=== PATIENT | male | born 1960 | race Caucasian/White ===

== ENCOUNTER 2021-03-21 11:41 | Outpatient (CLI) | payer SELFPAY ==
[2021-03-21 15:39] LABS: BUN - BLOOD UREA NITROGEN 18 mg/dL (6-20); CALCIUM 9.4 mg/dL (8.5-10.3); CARBON DIOXIDE - CO2 25 mmol/L (21-32); CHLORIDE 106 mmol/L (101-111); CHOL/HDL RATIO 7.5 (<5.0); CHOLESTEROL 234 mg/dL; CREATININE 0.9 mg/dL (0.6-1.2); GFR - MDRD 86 (>89); GLUCOSE 108 mg/dL (70-100); HDL CHOLESTEROL 31 mg/dL; LDL CHOLESTEROL,CALCULATED 141 mg/dL; LDL/HDL RATIO 4.5 (<3.6); POTASSIUM 4.4 mmol/L (3.5-5.0); SODIUM 140 mmol/L (135-145); TRIGLYCERIDES 309 mg/dL; VLDL CHOLESTEROL 62 mg/dL
[2021-03-21 20:07] LABS: ESTIMATED AVERAGE GLUCOSE 120 mg/dL (70-100); HEMOGLOBIN A1c% 5.8 % (4.27-6.07)
== END 2021-03-21 11:42 | disposition home or self-care (01) ==
LOC: LAB.S 11:41
PROVIDERS: ATTEND Physician Assistant
DX: I10 Essential (primary) hypertension (principal); R73.01 Impaired fasting glucose; E78.1 Pure hyperglyceridemia; E66.9 Obesity, unspecified
CPT/HCPCS: 36415; 80048; 80061; 83036; 83721; 84153

== ENCOUNTER 2021-04-06 15:45 | Outpatient (CLI) | payer SELFPAY | END 2021-04-06 15:46 | disposition critical access hospital (66) | LOC: EMS 15:45 | DX: R29.810 Facial weakness (principal); R47.81 Slurred speech | CPT/HCPCS: A0425; A0429 ==

== ENCOUNTER 2021-04-06 16:04 | Observation (INO) | payer SELFPAY ==
--- NOTE | 2021-04-06 16:11 | ED Physician Documentation ---
History of Present Illness - Stated complaint Stated Complaint: CODE STROKE - Additonal information Additional information: 61-year-old male presents the emergency department for evaluation of abrupt onset of aphasia and right-sided facial droop. Symptoms began at 1525. He was sitting outside with a friend at a picnic table when the friend noted that he began to have a sudden facial droop aphasia slurring words and difficulty with word finding. Blood sugar 98 on scene Patient is able to report to the provider that at the time that he had slurred speech and facial droop he was having some vision changes (flashers in his eyes) that have since resolved. He does have a history of migraines but did not have a headache at this time. Reports a family history of aneurysms in his sister and father. pmh: hyperlipidemia, htn. No hx of anticoagulation meds: lisinopril, amlodipine, niacin SOC: + tobacco; rare etoh Review of Systems Constitutional: reports: Reviewed and negative Eyes: reports: Reviewed and negative Ears: reports: Reviewed and negative Nose: reports: Reviewed and negative Throat: reports: Reviewed and negative Cardiac: reports: Reviewed and negative Respiratory: reports: Reviewed and negative GI: reports: Reviewed and negative : reports: Reviewed and negative Skin: reports: Reviewed and negative Musculoskeletal: reports: Reviewed and negative Neurologic: reports: Focal weakness. denies: Syncope, Confused, Altered mental status, Headache PD PAST MEDICAL HISTORY - Present Medications Home Medications: Ambulatory Orders Medication Instructions Recorded Confirmed Lisinopril/Hydrochlorothiazide 1 tablet PO DAILY 04/06/21 04/06/21 [Zestoretic 10-12.5 mg Tablet] Meloxicam [Mobic] 15 mg PO DAILY PRN 04/06/21 04/06/21 Multivitamin 1 tablet PO DAILY 04/06/21 04/06/21 Niacin (Inositol Niacinate) 500 mg PO BID 04/06/21 04/06/21 [Niacin 500 mg Capsule] amLODIPine [Norvasc] 5 mg PO DAILY 04/06/21 04/06/21 - Allergies Allergies/Adverse Reactions: Allergies Allergy/AdvReac Type Severity Reaction Status Date / Time No Known Drug Allergies Allergy Verified 04/06/21 16:25 PD ED PE EXPANDED - General General: Alert, No acute distress, Other (obese) - Neck Neck: Supple w/out meningeal sx. No: Adenopathy - Cardiac Cardiac: Regular Rate, Radial strong equal, Pedal strong equal, Cap refill < 2 sec - Respiratory Respiratory: Clear to ausultation keyana. No: Distress, Labored - Abdomen Abdomen: Normal Bowel sounds. No: Tender to palpation - Derm Derm: Normal color, Warm and dry - Extremities Extremities: Normal. No: Deformity, Tenderness - Neuro Neuro: Alert and Oriented X 3. No: CN deficit (right sided facial driip, slurred speech, difficulty with word finding) - GCS Eye Opening: Spontaneous Motor: Obeys Commands Verbal: Oriented Total: 15 Results - Vitals Vitals: Vital Signs - 24 hr 04/06/21 04/06/21 04/06/21 16:04 17:00 17:15 Temperature 37.0 C Heart Rate 87 75 73 Respiratory 22 16 16 Rate Blood Pressure 147/74 H 143/86 H 139/98 H O2 Saturation 95 96 96 Oxygen O2 Source Room air - EKG (time done) 1623 Rate: Rate (enter#) (82) Rhythm: NSR [place]: Normal Intervals: Normal GA. No: Prolonged QT QRS: LVH Ischemia: Q waves (anterior leads; ? LVH) Compare to prior EKG: Old EKG unavailable Computer interpretation: Agree with computer - Labs Labs: Laboratory Tests 04/06/21 04/06/21 04/06/21 16:17 16:20 16:20 WBC 6.3 RBC 5.84 Hgb 17.4 Hct 52.7 H MCV 90.2 MCH 29.8 MCHC 33.0 RDW 13.4 Plt Count 201 MPV 11.1 Neut # (Auto) 3.9 Lymph # (Auto) 1.4 L [place] # (Auto) 0.8 Eos # (Auto) 0.1 Baso # (Auto) 0.1 Absolute Nucleated RBC 0.00 Nucleated RBC % 0.0 PT 11.7 INR 1.0 Sodium Potassium Chloride Carbon Dioxide Anion Gap BUN Creatinine Estimated GFR (MDRD) Glucose Calcium Total Bilirubin AST ALT Alkaline Phosphatase Troponin I High Sens Total Protein Albumin Globulin Albumin/Globulin Ratio Lipase TSH Nasal Adenovirus (PCR) NOT DETECTED Nasal B. parapertussis DNA (PCR) NOT DETECTED Nasal Coronavir 229E PCR NOT DETECTED Nasal Coronavir HKU1 PCR NOT DETECTED Nasal Coronavir NL63 PCR NOT DETECTED Nasal Coronavir OC43 PCR NOT DETECTED Nasal Enterovir/Rhinovir PCR NOT DETECTED Nasal Influenza B PCR NOT DETECTED Nasal Influenza A PCR NOT DETECTED Nasal Parainfluen 1 PCR NOT DETECTED Nasal Parainfluen 2 PCR NOT DETECTED Nasal Parainfluen 3 PCR NOT DETECTED Nasal Parainfluen 4 PCR NOT DETECTED Nasal RSV (PCR) NOT DETECTED Nasal B.pertussis DNA PCR NOT DETECTED Nasal C.pneumoniae (PCR) NOT DETECTED Daniel Human Metapneumo PCR NOT DETECTED Nasal M.pneumoniae (PCR) NOT DETECTED Nasal SARS-CoV-2 (PCR) NOT DETECTED 04/06/21 04/06/21 04/06/21 16:20 16:20 16:20 WBC RBC Hgb Hct MCV MCH MCHC RDW Plt Count MPV Neut # (Auto) Lymph # (Auto) [place] # (Auto) Eos # (Auto) Baso # (Auto) Absolute Nucleated RBC Nucleated RBC % PT INR Sodium 136 Potassium 3.9 Chloride 102 Carbon Dioxide 26 Anion Gap 8.0 BUN 24 H Creatinine 1.0 Estimated GFR (MDRD) 76 L Glucose 89 Calcium 9.2 Total Bilirubin 0.9 AST 27 ALT 37 Alkaline Phosphatase 39 L Troponin I High Sens 5.0 Total Protein 7.2 Albumin 4.5 Globulin 2.7 Albumin/Globulin Ratio 1.7 Lipase 27 TSH 2.19 Nasal Adenovirus (PCR) Nasal B. parapertussis DNA (PCR) Nasal Coronavir 229E PCR Nasal Coronavir HKU1 PCR Nasal Coronavir NL63 PCR Nasal Coronavir OC43 PCR Nasal Enterovir/Rhinovir PCR Nasal Influenza B PCR Nasal Influenza A PCR Nasal Parainfluen 1 PCR Nasal Parainfluen 2 PCR Nasal Parainfluen 3 PCR Nasal Parainfluen 4 PCR Nasal RSV (PCR) Nasal B.pertussis DNA PCR Nasal C.pneumoniae (PCR) Daniel Human Metapneumo PCR Nasal M.pneumoniae (PCR) Nasal SARS-CoV-2 (PCR) - Rads (name of study) CT head, CT angio head/neck Radiology: Final report received (No intracranial hemorrhage. No aneurysm or significant stenosis seen. Unremarkable CTA head and neck) PD MEDICAL DECISION MAKING - ED course Complexity details: reviewed results, re-evaluated patient, d/w patient, d/w family, d/w home planning consultant salesperson (Dr. Moses tele stroke) ED course: 61-year-old gentleman presents to the emergency department for evaluation of acute onset right-sided facial droop, aphasia and difficulty with word finding. Symptoms began at 1525. At the time that he presented to the emergency de partment much of the facial droop aphasia and word finding difficulty had begun to resolve. At 1630 they were 100% resolved. His worst NIH was 3. Screening EKG chest x-ray and labs do not reveal any worrisome abnormalities. Telestroke consultation was done with Dr. Moses. She evaluated the patient as well as the imaging findings. Given that this gentleman does have a history of migraines she suspects that this was an atypical migraine. She would not recommend TPA at this time. She does recommend 325 mg of aspirin. Admission to the hospital for an MRI in the a.m. If MRI is unrevealing no findings of stroke, patient is okay to be discharged on 81 mg of aspirin for approximately 2 weeks and follow-up with a neurologist as an outpatient. I discussed the plan and findings with the patient and his brother at the bedside and they are in agreement. I discussed this admission with Dr. Arellano to who agrees to admit the patient. Departure - Departure Disposition: ED Place in Observation Clinical Impression: Stroke-like symptoms NIHSS - Time Time: 16:10 - Level of Consciousness Level of consciousness: (0) Alert, Keenly responsive - Gaze Best Gaze: (0) Normal - Visual Visual: (0) No loss - Facial Palsy Facial Palsy: (1) Minor paralysis - Motor Arms (both separate) Motor Arm (right): (0) No drift Motor Arm (left): (0) No drift - Motor Legs (both separate) Motor Leg (right): (0) No drift Motor Leg (left): (0) No drift - Limb Ataxia Limb Ataxia: (0) Absent - Sensory Sensory: (0) Normal - Best Language Best Language: (1) [id number] - Dysarthria Dysarthria: (0) Normal - Extinction and Inattention (formally neg Extinction and inattention: (0) No abnormality (3)
[2021-04-06] MEDS ORDERED: IOVERSOL 320 100 ML VIAL IVP ONE ×2 (16:25→16:35)
[2021-04-06 16:26] LABS: BASOPHILS # (AUTO) 0.1 10^3/uL (0.0-0.1); EOSINOPHILS # (AUTO) 0.1 10^3/uL (0.0-0.7); EOSINOPHILS % (AUTO) 1.3 %; HCT - HEMATOCRIT 52.7 % (42.0-52.0); HGB - HEMOGLOBIN 17.4 g/dL (14.0-18.0); LYMPHOCYTES # (AUTO) 1.4 10^3/uL (1.5-3.5); LYMPHOCYTES % (AUTO) 21.9 %; MEAN CORPUSCULAR HEMOGLOBIN 29.8 pg (27.0-31.0); MEAN CORPUSCULAR VOLUME 90.2 fL (80.0-94.0); MEAN PLATELET VOLUME 11.1 fL (7.4-11.4); MONOCYTES # (AUTO) 0.8 10^3/uL (0.0-1.0); MONOCYTES % (AUTO) 12.9 %; NEUTROPHILS # (AUTO) 3.9 10^3/uL (1.5-6.6); NEUTROPHILS % (AUTO) 62.4 %; PLT - PLATELET COUNT 201 10^3/uL (130-450); RED BLOOD COUNT 5.84 10^6/uL (4.70-6.10); RED CELL DISTRIBUTION WIDTH 13.4 % (12.0-15.0); WHITE BLOOD COUNT 6.3 x10^3/uL (4.8-10.8)
[2021-04-06 16:31] LABS: PT - PROTHROMBIN TIME 11.7 secs (9.9-12.6)
--- NOTE | 2021-04-06 16:34 | CT Report ---
PROCEDURE: Head W/O Stroke Protocol INDICATIONS: Slurred speech TECHNIQUE: Noncontrast 4.5 mm thick angled axial sections acquired from the foramen magnum to the vertex, with c oronal reformats. For radiation dose reduction, the following was used: automated exposure control, adjustment of mA and/or kV according to patient size. COMPARISON: FINDINGS: Image quality: Excellent. CSF spaces: Basal cisterns are patent. No extra-axial fluid collections. Ventricles are normal in size and shape. Brain: No midline shift. No intracranial masses or hemorrhage. Aguiar-white matter interface is norm al. Skull and face: Calvarium and visualized facial bones are intact, without suspicious lesions. Sinuses: Visualized sinuses and mastoids are clear. IMPRESSION: Unremarkable CT brain. No intracranial hemorrhage or mass effect. This study fulfills neurological imaging criteria for inclusion or exclusion of acute stroke therapie s based on available published neurological imaging guidelines. Critical results were discussed with Dr. Sanabria at 3:32 PM [place] time 04/06/2021 Reviewed by: Jude Merchant MD on 04/06/2021 3:33 PM AKMARIBEL Approved by: Jude Merchant MD on 04/06/2021 3:33 PM AKDT Station ID: [id number]
[2021-04-06 16:39] LABS: ALBUMIN 4.5 g/dL (3.2-5.5); ALBUMIN/GLOBULIN RATIO 1.7 (1.0-2.2); BILIRUBIN,TOTAL 0.9 mg/dL (0.2-1.0); CALCIUM 9.2 mg/dL (8.5-10.3); POTASSIUM 3.9 mmol/L (3.5-5.0); TOTAL PROTEIN 7.2 g/dL (6.7-8.2)
--- NOTE | 2021-04-06 16:40 | XRAY Report ---
PROCEDURE: Chest 1 View X-Ray INDICATIONS: Chest Pain TECHNIQUE: One view of the chest was acquired. COMPARISON: None FINDINGS: Surgical changes and devices: None. Lungs and pleura: No pleural effusions or pneumothorax. Lungs are clear. Mediastinum: Mediastinal contours appear normal. Heart size is enlarged. Bones and chest wall: No suspicious bony lesions. Overlying soft tissues appear unremarkable. IMPRESSION: No acute pulmonary process. Reviewed by: Zee Amaro MD on 04/06/2021 4:38 PM PDT Approved by: Zee Amaro MD on 04/06/2021 4:38 PM PDT Station ID: [id number]
--- NOTE | 2021-04-06 16:41 | CT Report ---
PROCEDURE: ANGIO HEAD W/WO INDICATIONS: stroke sx CONTRAST: IV CONTRAST: Optiray 320 ml: 80 PO CONTRAST: *NO PO CONTRAST TECHNIQUE: Precontrast 4.5 mm thick angled axial sections acquired from the foramen magnum to the vertex. Afte r the administration of intravenous contrast, 1 mm thick sections acquired through the [place] of [place] is. Postcontrast 4.5 mm thick sections then re-acquired from the foramen magnum to the vertex. For radiation dose reduction, the following was used: automated exposure control, adjustment of mA and/o r kV according to patient size. COMPARISON: None FINDINGS: Image quality: Excellent. Anterior circulation: Intracranial internal carotid arteries are normal in size and flow. The flow within the paired anterior cerebral arteries is normal and symmetric. The flow within the middle cer ebral arteries is normal and symmetric. The anterior communicating artery is seen. No aneurysms are seen. Posterior circulation: Visualized portions of the vertebral arteries demonstrate normal caliber, and join to form a normal appearing basilar artery. Flow within the posterior cerebral arteries is norm al and symmetric. No aneurysms are seen. CSF spaces: Ventricles are normal in size and shape. Basal cisterns are patent. No extra-axial flu id collections. Brain: No midline shift. No intracranial bleeds or masses. Aguiar-white matter interface appears int act. Skull and face: Calvarium and facial bones appear intact, without suspicious lesions. Sinuses: Visualized sinuses and mastoids are clear. IMPRESSION: Unremarkable CT angiogram of the brain. No large vessel occlusion, aneurysm or vascular malformation Reviewed by: Jude Merchant MD on 04/06/2021 3:39 PM PIYUSH Approved by: Jude Merchant MD on 04/06/2021 3:39 PM AKDT Station ID: [id number]
--- NOTE | 2021-04-06 16:47 | CT Report ---
PROCEDURE: ANGIO NECK W INDICATIONS: stroke sx CONTRAST: IV CONTRAST: Optiray 320 ml: 80 PO CONTRAST: *NO PO CONTRAST TECHNIQUE: After the administration of intravenous contrast, 1.5 mm axial sections acquired from the aortic arch to the [place] of [place]. Coronal 3-D maximum intensity projection (MIP) and/or volume rendering ref ormats were then performed. For radiation dose reduction, the following was used: automated exposur e control, adjustment of mA and/or kV according to patient size. COMPARISON: CTA head 04/06/2021 FINDINGS: Image quality: Excellent. Carotid system: The great vessels demonstrate a conventional anatomy as they arise from the aortic a rch. The origins of the common carotid arteries appear patent. The common carotid arteries demonstr ate normal calibers and courses. The bifurcation regions appear normal bilaterally. The internal ca rotid arteries demonstrate normal caliber and course. Posterior circulation: The origins of the vertebral arteries appear patent. The more superior porti ons of the vertebral arteries demonstrate normal course and caliber. They join to form a normal appe aring basilar artery. Soft tissues: Visualized neck soft tissues demonstrate no suspicious abnormalities. The thyroid is normal in size and there are no incidental findings. Bones: No suspicious bony lesions. Visualized cervical spine appears normally aligned. IMPRESSION: There are no areas of hemodynamically significant stenosis, vascular occlusion or aneurysmal dilation within the neck vasculature. The estimate of stenosis included in the report of the imaging study was calculated using the NASCET method Reviewed by: Zee Amaro MD on 04/06/2021 4:46 PM PDT Approved by: Zee Amaro MD on 04/06/2021 4:46 PM PDT Station ID: [id number]
[2021-04-06] MEDS ORDERED: ASPIRIN CHEW 81 MG TABLET PO STA (17:00)
[2021-04-06] MEDS ORDERED: ONDANSETRON 4 MG/2 ML VIAL IVP PRN (17:17)
[2021-04-06] MEDS ORDERED: ACETAMINOPHEN 325 MG TABLET PO PRN (17:17)
[2021-04-06] MEDS ORDERED: SODIUM CHLORIDE FLUSH 0.9% 10 ML SYRINGE IVP PRN (17:17)
--- NOTE | 2021-04-06 17:25 | HISTORY & PHYSICAL EXAMINATION ---
Chief Complaint - Chief Complaint Chief Complaint: slurred speech, word-finding difficulties History of Present Illness - Admitted From Admitted From:: [facility] ED - History Obtained From Records Reviewed: yes History obtained from: patient - History of Present Illness HPI Comment/Other: Patient is a 61-year-old male with medical history significant for migraines, hypertension, hyperlipidemia who presented to the ED with word finding diffic ulty, slurred speech and right facial droop. His symptoms started suddenly around 3:20 PM while he was getting something to eat. He also reported experiencing some haziness in his vision which he typically experiences with migraines. However he reports that he has never previously experienced the word finding difficulty and slurred speech or facial droop. He denied any lower extremity weakness or numbness. By the time he presented to the ED his symptoms had resolved. Work-up in the ED included a CT and CTA head and neck which were unremarkable. He was presented for further work-up for TIA symptoms. His case was discussed with stroke neurology who felt this might have been related to his migraines. At bedside the patient was resting comfortably visiting with his brother. He denied chest pain, dyspnea, abdominal pain, nausea, vomiting, fever or chills. Neuro exams were negative. History - Past Medical History Cardiovascular: reports: Hypertension, High cholesterol Neuro: reports: Migraines GI: reports: Other (right inguinal and umbilical hernia) Other Past Medical History: chews tobacco - Past Surgical History General: reports: Other Ortho: reports: Arthroscopic surgery - Family & Social History Family History Comment/Other: His father in his 40s from a brain aneurysm. His father also had a valvular replacement. His sister also has brain aneurysm. Social History Notes: He lives at home with his girlfriend and his brother occasionally lives with them. He smokes about 4 cigarettes daily and has been smoking for 3 years. He chews tobacco. He rarely consumes alcohol and does not use any recreational substances. - POLST Patient has POLST: No POLST Status: Full Code Meds/Allgy - Home Medications Home Medications: Ambulatory Orders Medication Instructions Recorded Confirmed Lisinopril/Hydrochlorothiazide 1 tablet PO DAILY 04/06/21 04/06/21 [Zestoretic 10-12.5 mg Tablet] Meloxicam [Mobic] 15 mg PO DAILY PRN 04/06/21 04/06/21 Multivitamin 1 tablet PO DAILY 04/06/21 04/06/21 Niacin (Inositol Niacinate) 500 mg PO BID 04/06/21 04/06/21 [Niacin 500 mg Capsule] amLODIPine [Norvasc] 5 mg PO DAILY 04/06/21 04/06/21 Aspirin EC [Ecotrin] 81 mg PO DAILY tablet 04/07/21 Atorvastatin [Lipitor] 40 mg PO QPM 30 Days #30 tablet 04/07/21 Fenofibrate,Micronized 67 mg PO DAILY 30 Days #30 cap 04/07/21 [Fenofibrate] - Allergies Allergies/Adverse Reactions: Allergies Allergy/AdvReac Type Severity Reaction Status Date / Time No Known Drug Allergies Allergy Verified 04/06/21 16:25 Review of Systems - Constitutional Constitutional: denies: Fatigue, Fever, Chills, Weakness - Eyes Eyes: reports: Blurred vision. denies: Pain - Ears, Nose & Throat Ears, Nose & Throat: denies: Ear pain, Hearing loss, Vertigo, Sore throat - Cardiovascular Cariovascular: denies: Irregular heart rate, Palpitations, Chest pain, Edema, Lightheadedness, Syncope - Respiratory Respiratory: denies: Cough, Sputum production, Wheezing, SOB at rest, SOB with exertion - Gastrointestinal Gastrointestinal: denies: Abdominal pain, Abdominal distention, Constipation, Diarrhea, Nausea, Vomiting, Reflux/heartburn - Genitourinary Genitourinary: denies: Dysuria, Frequency, Urgency, Hematuria, Incontinence - Musculoskeletal Musculoskeletal: denies: Muscle pain, Back pain, Muscle aches, Stiffness - Integumentary Integumentary: denies: Rash, Pruritis, Lesions, Dryness - Neurological Neurological: reports: Slurred speech, Other (word-finding difficulty). denies: Headache, Dizziness - Psychiatric Psychiatric: denies: Depression, Anxiety - Endocrine Endocrine: denies: Polyuria, Polydypsia - Hematologic/Lymphatic Hematologic/Lymphatic: denies: Anemia, Bruising, Petechiae Prior Level of Functionality: He is independent of activities of daily living. He is a builder. Exam - Vital Signs Vital Signs: Vital Signs x48h Temp Pulse Resp BP Pulse Ox 04/06/21 17:15 73 16 139/98 H 96 04/06/21 17:00 75 16 143/86 H 96 04/06/21 16:04 37.0 C 87 22 147/74 H 95 - Physical Exam General Appearance: positive: No acute distress, Alert Eyes Bilateral: positive: PERRL, EOMI ENT: positive: No signs of dehydration Neck: positive: No JVD, Trachea midline Respiratory: positive: Chest non-tender, No respiratory distress, Breath sounds nml. negative: Wheezes, Rales, Rhonchi Cardiovascular: positive: Regular rate & rhythm, No murmur Abdomen: positive: Non-tender, Nml bowel sounds, No distention. negative: Guarding, Rebound Back: positive: Nml inspection Skin: positive: Color nml, No rash, Warm, Dry Extremities: positive: Non-tender, Full ROM, No pedal edema Neurologic/Psychiatric: positive: Oriented x3, Motor nml, Mood/affect nml. negative: Weakness, Facial droop, Slurred/abnml speech Conclusion/Plan - Problem List (1) TIA (transient ischemic attack) Conclusion/Plan: CT and CT Stephanie of the head and neck were negative. Neurochecks every shift. MRI of the brain without contrast ordered for the morning. 2D echocardiogram ordered for the morning. We will check hemoglobin A1c. Patient was given a full dose aspirin. We will continue baby aspirin daily. (2) Hypertension Conclusion/Plan: On amlodipine, lisinopril and hydrochlorothiazide. Will resume in the a.m. (3) Hyperlipidemia Conclusion/Plan: Patient had lipid panel done on 03/08/21. Triglycerides were 309, total cholesterol 234, LDL 141 and HDL 31. Patient was started on niacin 500 mg twice daily by his primary care physician. Atorvastatin 40 mg p.o. every afternoon initiated today. Patient advised that he would need to continue atorvastatin. He was also advised on diet and exercise. (4) Migraines Conclusion/Plan: Patient does not take any medications. - Lab Results Fish Bones: 04/07/21 05:02 04/07/21 05:02 Core Measures - Anticipated LOS I expect patient to be DC'd or transferred within 96 hours.: Yes - DVT/VTE - Prophylaxis VTE/DVT Device ordered at admit?: Yes - AMI - Statin at Admit Aspirin Prescribed on Admit: Yes
[2021-04-06 17:30] LABS: B. PARAPERTUSSIS- RESP PCR PAN NOT DETECTED; B. PERTUSSIS- RESP PCR PANEL NOT DETECTED; C. PNEUMONIAE- RESP PCR PANEL NOT DETECTED; CORONAVIRUS 229E-RESP PCR NOT DETECTED; CORONAVIRUS HKU1-RESP PCR NOT DETECTED; CORONAVIRUS NL63-RESP PCR NOT DETECTED; CORONAVIRUS OC43-RESP PCR NOT DETECTED; HUMAN METAPNEUMOVIRUS NOT DETECTED; INFLUENZA A- RESP PCR PANEL NOT DETECTED; INFLUENZA B - RESP PCR PANEL NOT DETECTED; M. PNEUMONIAE- RESP PCR PANEL NOT DETECTED; PARAINFLUENZA VIRUS 1 NOT DETECTED; PARAINFLUENZA VIRUS 2 NOT DETECTED; PARAINFLUENZA VIRUS 3 NOT DETECTED; PARAINFLUENZA VIRUS 4 NOT DETECTED; RHINOVIRUS/ENTEROVIRUS NOT DETECTED; RSV- RESP PCR PANEL NOT DETECTED; SARS-CoV-2 -RESP PCR PANEL NOT DETECTED
--- NOTE | 2021-04-06 17:41 | PHARMACY PROGRESS NOTE ---
- Best Possible Medication History Admit Date and Time: 04/06/21 1717 Processed by: Nursing Medication History completed: Yes As the person ultimately responsible for medication therapy, providers are able to order a medication from an existing home medication list in [facility] via the "Reconcile Routine" prior to Confirmation of that medication by support architect. Such practice is discouraged except when the physician, in their clinical judgment, deems that a medical need exists for a medication without regard to previous use.
[2021-04-06] MEDS ORDERED: ATORVASTATIN 40 MG TABLET PO SCH (21:00)
[2021-04-06] MEDS ORDERED: NIACIN 500 MG PO SCH (21:00)
[2021-04-07] MEDS: SODIUM CHLORIDE FLUSH 0.9% 10 ML SYRINGE IVP SCH ×2 (01:24→09:44)
[2021-04-07 05:19] LABS: BASOPHILS # (AUTO) 0.1 10^3/uL (0.0-0.1); BASOPHILS % (AUTO) 0.8 %; EOSINOPHILS # (AUTO) 0.1 10^3/uL (0.0-0.7); EOSINOPHILS % (AUTO) 2.2 %; HCT - HEMATOCRIT 51.5 % (42.0-52.0); LYMPHOCYTES # (AUTO) 1.8 10^3/uL (1.5-3.5); LYMPHOCYTES % (AUTO) 28.2 %; MEAN CORPUSCULAR HEMOGLOBIN 29.8 pg (27.0-31.0); MEAN CORPUSCULAR VOLUME 90.4 fL (80.0-94.0); MEAN PLATELET VOLUME 11.6 fL (7.4-11.4); MONOCYTES # (AUTO) 0.7 10^3/uL (0.0-1.0); MONOCYTES % (AUTO) 10.4 %; NEUTROPHILS # (AUTO) 3.7 10^3/uL (1.5-6.6); NEUTROPHILS % (AUTO) 57.9 %; PLT - PLATELET COUNT 208 10^3/uL (130-450); RED CELL DISTRIBUTION WIDTH 13.6 % (12.0-15.0); WHITE BLOOD COUNT 6.4 x10^3/uL (4.8-10.8)
[2021-04-07 05:25] LABS: POTASSIUM 4.1 mmol/L (3.5-5.0)
[2021-04-07 08:31] LABS: ESTIMATED AVERAGE GLUCOSE 117 mg/dL (70-100); HEMOGLOBIN A1c% 5.7 % (4.27-6.07)
[2021-04-07] MEDS ORDERED: lisinopriL 5 MG TABLET PO SCH (09:00)
[2021-04-07] MEDS ORDERED: amLODIPine 5 MG TABLET PO SCH (09:00)
[2021-04-07] MEDS ORDERED: hydroCHLOROthiazide 12.5 MG CAPSULE PO SCH (09:00)
[2021-04-07] MEDS ORDERED: ASPIRIN EC 81 MG TABLET PO SCH (09:00)
--- NOTE | 2021-04-07 13:53 | Discharge Plan ---
Discharge Plan Problem Reviewed?: Yes Disposition: Home, Self Care Condition: Stable Prescriptions: Fenofibrate,Micronized [Fenofibrate] 67 mg PO DAILY 30 Days #30 cap Atorvastatin [Lipitor] 40 mg PO QPM 30 Days #30 tablet Diet: Cardiac Activity Restrictions: Activity as Tolerated Shower Restrictions: No Driving Restrictions: No Health Concerns: You presented to the emergency department yesterday with slurred speech, word finding difficulty and right facial droop. Your symptoms had resolved by the time you arrived the emergency room. Work-up included an MRI of your brain which showed that you had a subacute left parietal cortical lacunar infarct. This finding has been discussed with you in the presence of your girlfriend and your son. Recommendations are for medical optimization. The goals would be for blood pressure control, improvement of your lipids (triglycerides and cholesterol). You have been advised to watch your diet. This was involved eating more fruits and vegetables and minimizing your salt intake, fast food and eating out. You are advised to exercise more. 30 minutes of rigorous exercise 3 times a week will be good. You have been advised to stop smoking. You have been advised to minimize stress in your life since this tends to contribute to elevated blood pressures. You are to continue taking your lisinopril, HCTZ and amlodipine. You may get a blood pressure monitor if affordable and monitor your blood pressure regularly at the same time of the day. Ideally we would like to have your blood pressure less than 140/80. You may discuss your blood pressure recordings with your primary care physician for the possibility of adjusting your medications if your blood pressure is not well controlled. Systolic blood pressure of 200 would warrant immediate attention. New medications ordered: Atorvastatin 40 mg p.o. q. p.m. Fenofibrate 67 mg p.o. daily. Aspirin 81 mg p.o. daily You are to follow-up with your primary care physician in 7 to 10 days from now. This is a posthospitalization follow-up. It is expected that your physician will assume management of your home medications and any new medications ordered in the hospital. It is expected that your primary care physician would also repeat your labs to include repeat lipid panel in at least 3 months from now. Due to lack of any neurologic deficit you may resume work and activities as tolerated. You expressed understanding of the plan discussed above and are in agreement. You are being discharged in stable condition. Plan of Treatment: You presented to the emergency department yesterday with slurred speech, word finding difficulty and right facial droop. Your symptoms had resolved by the time you arrived the emergency room. Work-up included an MRI of your brain which showed that you had a subacute left parietal cortical lacunar infarct. This finding has been discussed with you in the presence of your girlfriend and your son. Recommendations are for medical optimization. The goals would be for blood pressure control, improvement of your lipids (triglycerides and cholesterol). You have been advised to watch your diet. This was involved eating more fruits and vegetables and minimizing your salt intake, fast food and eating out. You are advised to exercise more. 30 minutes of rigorous exercise 3 times a week will be good. You have been advised to stop smoking. You have been advised to minimize stress in your life since this tends to contribute to elevated blood pressures. You are to continue taking your lisinopril, HCTZ and amlodipine. You may get a blood pressure monitor if affordable and monitor your blood pressure regularly at the same time of the day. Ideally we would like to have your blood pressure less than 140/80. You may discuss your blood pressure recordings with your primary care physician for the possibility of adjusting your medications if your blood pressure is not well controlled. Systolic blood pressure of 200 would warrant immediate attention. New medications ordered: Atorvastatin 40 mg p.o. q. p.m. Fenofibrate 67 mg p.o. daily. Aspirin 81 mg p.o. daily You are to follow-up with your primary care physician in 7 to 10 days from now. This is a posthospitalization follow-up. It is expected that your physician will assume management of your home medicat ions and any new medications ordered in the hospital. It is expected that your primary care physician would also repeat your labs to include repeat lipid panel in at least 3 months from now. Due to lack of any neurologic deficit you may resume work and activities as tolerated. You expressed understanding of the plan discussed above and are in agreement. You are being discharged in stable condition. Care Goals: You presented to the emergency department yesterday with slurred speech, word finding difficulty and right facial droop. Your symptoms had resolved by the time you arrived the emergency room. Work-up included an MRI of your brain which showed that you had a subacute left parietal cortical lacunar infarct. This finding has been discussed with you in the presence of your girlfriend and your son. Recommendations are for medical optimization. The goals would be for blood pressure control, improvement of your lipids (triglycerides and cholesterol). You have been advised to watch your diet. This was involved eating more fruits and vegetables and minimizing your salt intake, fast food and eating out. You are advised to exercise more. 30 minutes of rigorous exercise 3 times a week will be good. You have been advised to stop smoking. You have been advised to minimize stress in your life since this tends to contribute to elevated blood pressures. You are to continue taking your lisinopril, HCTZ and amlodipine. You may get a blood pressure monitor if affordable and monitor your blood pressure regularly at the same time of the day. Ideally we would like to have your blood pressure less than 140/80. You may discuss your blood pressure recordings with your primary care physician for the possibility of adjusting your medications if your blood pressure is not well controlled. Systolic blood pressure of 200 would warrant immediate attention. New medications ordered: Atorvastatin 40 mg p.o. q. p.m. Fenofibrate 67 mg p.o. daily. Aspirin 81 mg p.o. daily You are to follow-up with your primary care physician in 7 to 10 days from now. This is a posthospitalization follow-up. It is expected that your physician will assume management of your home medications and any new medications ordered in the hospital. It is expected that your primary care physician would also repeat your labs to include repeat lipid panel in at least 3 months from now. Due to lack of any neurologic deficit you may resume work and activities as tolerated. You expressed understanding of the plan discussed above and are in agreement. You are being discharged in stable condition. Assessment: You presented to the emergency department yesterday with slurred speech, word finding difficulty and right facial droop. Your symptoms had resolved by the time you arrived the emergency room. Work-up included an MRI of your brain which showed that you had a subacute left parietal cortical lacunar infarct. This finding has been discussed with you in the presence of your girlfriend and your son. Recommendations are for medical optimization. The goals would be for blood pressure control, improvement of your lipids (triglycerides and cholesterol). You have been advised to watch your diet. This was involved eating more fruits and vegetables and minimizing your salt intake, fast food and eating out. You are advised to exercise more. 30 minutes of rigorous exercise 3 times a week will be good. You have been advised to stop smoking. You have been advised to minimize stress in your life since this tends to contribute to elevated blood pressures. You are to continue taking your lisinopril, HCTZ and amlodipine. You may get a blood pressure monitor if affordable and monitor your blood pressure regularly at the same time of the day. Ideally we would like to have your blood pressure less than 140/80. You may discuss your blood pressure recordings with your primary care physician for the possibility of adjusting your medications if your blood pressure is not well controlled. Systolic blood pressure of 200 would warrant immediate attention. New medications ordered: Atorvastatin 40 mg p.o. q. p.m. Fenofibrate 67 mg p.o. daily. Aspirin 81 mg p.o. daily You are to follow-up with your primary care physician in 7 to 10 days from now. This is a posthospitalization follow-up. It is expected that your physician will assume management of your home medications and any new medications ordered in the hospital. It is expected that your primary care physician would also repeat your labs to include repeat lipid panel in at least 3 months from now. Due to lack of any neurologic deficit you may resume work and activities as tolerated. You expressed understanding of the plan discussed above and are in agreement. You are being discharged in stable condition. No Smoking: If you smoke, Please STOP! Call for help. Follow-up with: DANAY QURESHI PA-C [Primary Care Provider] -
--- NOTE | 2021-04-07 13:53 | DISCHARGE SUMMARY ---
"Discharge Summary Admit Date: 04/06/20 Discharge Date: 04/07/21 Discharging Provider: Moises Arellano Primary Care Provider: Suresh Jc Code Status: Attempt Resuscitation Condition at Discharge: Stable Discharge Disposition: 01 Home, Self Care - DIAGNOSES Admission Diagnoses: TIA Hypertension Hyperlipidemia Migraine Discharge Diagnoses with Status of Each Condition: CVA: Subacute left parietal cortical lacunar infarcts. No residual deficits. Lipitor, fenofibrate, Baby aspirin ordered Hypertension: Chronic. Stable. Continue home medication Hyperlipidemia: Lipitor and Fenofibrate ordered Migraines: Stable. Not in Status/ Flare. Not on any medication - HPI History of Present Illness: Patient is a 61-year-old male with medical history significant for migraines, hypertension, hyperlipidemia who presented to the ED with word finding difficulty, slurred speech and right facial droop. His symptoms started suddenly around 3:20 PM while he was getting something to eat. He also reported experiencing some haziness in his vision which he typically experiences with migraines. However he reports that he has never previously experienced the word finding difficulty and slurred speech or facial droop. He denied any lower extremity weakness or numbness. By the time he presented to the ED his symptoms had resolved. Work-up in the ED included a CT and CTA head and neck which were unremarkable. He was presented for further work-up for TIA symptoms. His case was discussed with stroke neurology who felt this might have been related to his migraines. At bedside the patient was resting comfortably visiting with his brother. He denied chest pain, dyspnea, abdominal pain, nausea, vomiting, fever or chills. Neuro exams were negative. - CONSULTS | PROCEDURES Procedures: MRI of the brain done on 04/07/2021 showed subacute left parietal cortical lacunar infarct noted in the postcentral gyrus laterally. Chronic ischemic changes noted in the left frontal white matter. 2D echocardiogram showed done on 04/07/21 showed Left ventricular size is normal. There was mild concentric left ventricular hypertrophy. Overall left ventricular systolic function is normal with an ejection fraction of 60 to 65%. Normal diastolic G. No regional wall motion abnormality seen. Right ventricle is normal in size and function. Left atrial volume index is normal. Right atrium mild to moderate right atrial enlargement. The aortic valve was trileaflet. There is mild to moderate aortic valve sclerosis. There was no evidence of aortic stenosis or aortic regurgitation. No mitral stenosis or mitral regurgitation. There is no pericardial effusion noted. The interatrial septum was normal. There was insufficient TR jet to allow for accurate assessment of the RVSP. - HOSPITAL COURSE Hospital Course: Patient overnight stay was unremarkable. He was monitored on telemetry. With neuro checks He had a lipid panel on 03/21/21 which showed Triglycerides of 309, Cholesterol 234, LDL 141 and HDL 31 When the MRI of the brain came back indicating a subacute left parietal lacunar infarct Session with the patient while his son and his girlfriend were at bedside. I emphasized the importance of eating healthier. Eating more fruits and vegetables, less salt, less fast food or eating out. Emphasized the importance of exercise. He was advised to stop smoking. He was prescribed lipitor 40 mg p.o. every afternoon, fenofibrate and a baby aspirin daily. He is to continue taking his lisinopril, HCTZ and amlodipine. He was also educated on the importance of blood pressure control. Ideally his blood pressure should be less than 140/80. He was advised to get a blood pressure monitor if affordable. He could keep blood pressure readings daily for a 7-day period, Checking his blood pressure at the same time of the day. Preferably in the morning. He can then discuss these recordings with his primary care physician for further adjustment of his blood pressure medication. The patient was discharged home in stable condition. Through out his hospital stay and at the time of his discharge he had no neurological deficits. He was advised to follow-up with his primary care physician in 7 to 10 days. It is expected that his primary care physician will resume management of his medications. The patient expressed understanding and was agreeable with the above discussed plans. - ALLERGIES Allergies/Adverse Reactions: Allergies Allergy/AdvReac Type Severity Reaction Status Date / Time No Known Drug Allergies Allergy Verified 04/06/21 16:25 - MEDICATIONS Home Medications: Ambulatory Orders Medication Instructions Recorded Confirmed Lisinopril/Hydrochlorothiazide 1 tablet PO DAILY 04/06/21 04/06/21 [Zestoretic 10-12.5 mg Tablet] Meloxicam [Mobic] 15 mg PO DAILY PRN 04/06/21 04/06/21 Multivitamin 1 tablet PO DAILY 04/06/21 04/06/21 Niacin (Inositol Niacinate) 500 mg PO BID 04/06/21 04/06/21 [Niacin 500 mg Capsule] amLODIPine [Norvasc] 5 mg PO DAILY 04/06/21 04/06/21 Aspirin EC [Ecotrin] 81 mg PO DAILY tablet 04/07/21 Atorvastatin [Lipitor] 40 mg PO QPM 30 Days #30 tablet 04/07/21 Fenofibrate,Micronized 67 mg PO DAILY 30 Days #30 cap 04/07/21 [Fenofibrate] - PHYSICAL EXAM AT DISCHARGE General Appearance: positive: No acute distress, Alert Eyes Bilateral: positive: PERRL, EOMI ENT: positive: No signs of dehydration Neck: positive: No JVD, Trachea midline Respiratory: positive: Chest non-tender, No respiratory distress, Breath sounds nml. negative: Wheezes, Rales, Rhonchi Cardiovascular: positive: Regular rate & rhythm, No murmur Abdomen: positive: Non-tender, No organomegaly, Nml bowel sounds, No distention. negative: Guarding, Rebound Back: positive: Nml inspection. negative: CVA tenderness (R) Skin: positive: Color nml, No rash, Warm, Dry Extremities: positive: Non-tender, Full ROM, Nml appearance, No pedal edema Neurologic/Psychiatric: positive: Oriented x3, Motor nml, Sensation nml, Mood/affect nml. negative: Facial droop, Slurred/abnml speech, Depressed m ood/affect - LABS Result Diagrams: 04/07/21 05:02 04/07/21 05:02 - TIME SPENT Time Spent in Discharge (Minutes): 25"
--- NOTE | 2021-04-07 14:26 | MRI Report ---
PROCEDURE: Brain W/O INDICATIONS: slurred speech TECHNIQUE: Noncontrast axial T1 spin echo, axial T2 fast spin echo, sagittal and axial FLAIR, coronal T2 fast sp in echo, axial gradient echo, axial diffusion and ADC through the brain. COMPARISON: None. FINDINGS: Image quality: Excellent. CSF Spaces: Basal cisterns are patent. No extra-axial fluid collections. Ventricles are normal in size and shape. Brain: There is punctate restricted diffusion noted in the left parietal postcentral gyrus laterally , consistent with subacute infarct noted. Minimal associated edema without sulcal effacement or midli ne shift. Additionally, small white matter chronic ischemic change noted in the left frontal lobe. No intracran ial masses or hemorrhage. Aguiar/white matter interface is normal. Brainstem appears normal. Normal intravascular flow voids are present. Skull and face: Calvarium has normal marrow signal. Orbits appear normal. Sinuses: Sinuses and mastoids are clear. IMPRESSION: 1. Subacute left parietal cortical lacunar infarcts noted in the postcentral gyrus laterally 2. Chronic ischemic change noted in the left frontal white matter. Reviewed by: Jude Merchant MD on 04/07/2021 1:25 PM [facility] Approved by: Jude Merchant MD on 04/07/2021 1:25 PM [facility] Station ID: [id number]
[2021-04-07 17:13] VITALS: BP 137/86
== END 2021-04-07 16:55 | disposition home or self-care (01) ==
LOC: EDUNIT# → SUPCPDRO 16:04 → ED 16:04 → MS2 17:17
PROVIDERS: ADMIT Internal Medicine; ATTEND Internal Medicine
DX: I63.81 Other cerebral infarction due to occlusion or stenosis of small artery (principal); R47.01 Aphasia; R29.810 Facial weakness; I10 Essential (primary) hypertension; F17.210 Nicotine dependence, cigarettes, uncomplicated; R29.703 NIHSS score 3; F17.220 Nicotine dependence, chewing tobacco, uncomplicated; G43.909 Migraine, unspecified, not intractable, without status migrainosus; E78.5 Hyperlipidemia, unspecified; Z20.822 Contact with and (suspected) exposure to COVID-19
CPT/HCPCS: 0202U; 36415; 70450; 70496; 70498; 70551; 71045; 80048; 80053; 83036; 83690; 84443; 84484; 85025; 85610; 93005; 93306; 99284; 99285; A9270; G0378; Q9967